=== PATIENT | female | born 1980 | race American Indian/Alaskan Native ===

== ENCOUNTER 2019-02-28 17:14 | Emergency (ER) | payer MEDICARE ==
[2019-02-28] MEDS ORDERED: IPRATROPIUM/ALBUTEROL SULFATE 3 ML AMPUL.NEB IH ONE (18:25)
--- NOTE | 2019-02-28 19:07 | Emergency Department Report ---
HPI - General Chief Complaint: Neuro Symptoms/Deficit Time Seen by Provider: 02/28/19 17:57 - HPI HPI: 38-year-old -[place] female presents to the emergency department via EMS with complaint of some left-sided headache, transient blurry vision, numbness to the face and hands that started around 4:00 when she was driving to order picker her child. She has a past medical history of hypertension, diabetes, anxiety, paroxysmal atrial fibrillation and asthma. She did not take anything for her symptoms prior to presentation. Currently she just complains of the headache which she says is currently 6 out of 10. She says this is not the worst headach e of her life. She also asked for a breathing treatment saying that she feels tight in the lungs. No recent travel or sick contacts at home. Her primary care physician is Dr. Osorio. She denies any tobacco or illicit drug use. ED Past Medical Hx - Past Medical History Previous Medical History?: Yes Hx Hypertension: Yes Hx Diabetes: Yes Hx Asthma: Yes Additional medical history: A-fib, anxiety - Social History Smoking Status: Never Smoker - Medications Home Medications: Home Medications Medication Instructions Recorded Confirmed Last Taken Type ALBUTEROL Inhaler (OR & NICU) 2 puff IH QID PRN #1 inh 03/01/19 Unknown Rx [ProAir HFA Inhaler] ED Review of Systems ROS: Stated complaint: PANIC ATTACK/LETHARGIC Other details as noted in HPI Comment: All other systems reviewed and negative Constitutional: denies: chills, fever Eyes: vision change. denies: eye pain ENT: denies: ear pain, throat pain Respiratory: wheezing. denies: cough Cardiovascular: denies: chest pain, palpitations Gastrointestinal: denies: abdominal pain, vomiting Genitourinary: denies: dysuria, discharge Musculoskeletal: denies: back pain, arthralgia Skin: denies: rash, lesions Neurological: headache, numbness. denies: weakness, confusion Physical Exam - Physical Exam Vital Signs: Vital Signs 02/28/19 17:52 Temperature 98.5 F Pulse Rate 86 Respiratory 13 Rate Blood Pressure 122/66 [Right] O2 Sat by Pulse 98 Oximetry Physical Exam: GENERAL: The patient is well-developed well-nourished. HENT: Normocephalic. Atraumatic. Patient has moist mucous membranes. EYES: Extraocular motions are intact. Pupils equal reactive to light bilaterally. No nystagmus. NECK: Supple. Trachea is midline. CHEST/LUNGS: Mild expiratory wheezing. No tachypnea or accessory muscle use. There is no respiratory distress noted. HEART/CARDIOVASCULAR: Regular. There is no tachycardia. There is no murmur. ABDOMEN: Abdomen is soft, nontender. Patient has normal bowel sounds. There is no abdominal distention. SKIN: Skin is warm and dry. NEURO: The patient is sleepy but is easily arousable. Once awake she is alert and oriented, AAO 3. The patient is cooperative. The patient has no focal neurologic deficits. Normal speech. Cranial nerves II through XII grossly intact. No pronator drift. No dysmetria. MUSCULOSKELETAL: There is no tenderness or deformity. There is no limitation range of motion. There is no evidence of acute injury. ED Course Vital Signs 02/28/19 17:52 Temperature 98.5 F Pulse Rate 86 Respiratory 13 Rate Blood Pressure 122/66 [Right] O2 Sat by Pulse 98 Oximetry - ABG Interpretation Ph: 7.432 PCO2: 39 PO2: 98 Bicarbonate: 25 Interpretation: normal ED Medical Decision Making - Lab Data Result diagrams: 02/28/19 19:19 02/28/19 19:19 - EKG Data -: EKG Interpreted by Mo EKG shows normal: sinus rhythm, axis, intervals, QRS complexes (LAFB), ST-T waves Rate: normal - EKG Data When compared to previous EKG there are: previous EKG unavailable Interpretation: other (Left Anterior Fasicular Block. No STEMI) - Radiology Data Radiology results: report reviewed CT of the head does not show any acute intracranial process including no ischemia, shift, mass, bleeding or skull fracture. - Medical Decision Making This patient presented with the complaint of a headache, some transient blurry vision and some nonspecific dizziness. Also while here the patient says she she needs a breathing treatment. There is only some mild expiratory wheezing but no signs of any respiratory distress. On examination she does not have any focal, motor or sensory deficits in her cranial nerves are intact. A CT scan of the head without contrast was done that does not show any bleed, shift, mass, ischemia, or any other acute process. Labs have been unremarkable including CBC, metabolic panel, urinalysis and ESR. Patient was given some breathing treatments. Prior to discharge the patient was ambulatory around the emergency department without any dizziness, increased work of breathing and she both appeared and felt stable. Vital signs stable throughout her ED course. The patient appears safe for discharge home. She has good follow-up with primary care. She was given a prescription for an albuterol inhaler. She will return to the ER with any worsening of her symptoms or any acute distress. - Differential Diagnosis TIA, temporal arteritis, asthma, dysrhythmia Critical Care Time: No Critical care attestation.: If time is entered above; I have spent that time in minutes in the direct care of this critically ill patient, excluding procedure time. ED Disposition Clinical Impression: Bronchospasm Headache Qualifiers: Headache type: unspecified Headache chronicity pattern: unspecified pattern Intractability: not intractable Qualified Code(s): R51 - Headache Disposition: DC- TO HOME OR SELFCARE Is pt being admited?: No Condition: Stable Instructions: Acute Headache (ED), Blurred Vision (ED), Bronchospasm (ED) Additional Instructions: Please follow-up with your primary care physician in the next few days. Return to the emergency Department with any return or worsening of your symptoms, or with any acute distress. Prescriptions: ALBUTEROL Inhaler (OR & NICU) [ProAir HFA Inhaler] 2 puff IH QID PRN #1 inh PRN Reason: Shortness Of Breath Referrals: PRIMARY CAREMD [Primary Care Provider] - 2-3 Days Time of Disposition: 00:41
[2019-02-28 19:33] LABS: Basophils # (Auto) 0.1 K/mm3 (0.0-0.1); Basophils % (Auto) 1.1 % (0.0-1.8); Eosinophils # (Auto) 0.3 K/mm3 (0.0-0.4); Eosinophils % (Auto) 3.7 % (0.0-4.3); Hemoglobin 11.9 gm/dl (10.1-14.3); Lymphocytes % (Auto) 25.1 % (13.4-35.0); Mean Corpuscular HGB Conc 32 % (30-34); Mean Corpuscular Volume 80 fl (79-97); Monocytes # (Auto) 0.5 K/mm3 (0.0-0.8); Platelet Count 248 K/mm3 (140-440); Red Blood Count 4.62 M/mm3 (3.65-5.03); Red Cell Distribution Width 15.7 % (13.2-15.2)
[2019-02-28 19:43] LABS: BUN/Creatinine Ratio 13; Blood Urea Nitrogen 8 mg/dL (7-17); Calcium 8.7 mg/dL (8.4-10.2); Hemolysis Index 3
[2019-02-28 19:53] LABS: Erythrocyte Sedimentation Rate 17 mm/Hr (0-20)
[2019-02-28 20:09] LABS: Bilirubin,Urine NEG (Negative); Blood,Urine NEG (Negative); Color,Urine Yellow (Yellow); Mucus,Urine FEW /HPF; Protein,Urine <15 mg/dL mg/dL (Negative); Urobilinogen,Urine < 2.0 mg/dL (<2.0)
--- NOTE | 2019-02-28 21:57 | Cat Scan Report ---
CT head/brain wo con INDICATION / CLINICAL INFORMATION: 38 years Female; headache. TECHNIQUE: Routine CT head without contrast. All CT scans at this location are performed using CT dos e reduction for ALARA by means of automated exposure control. COMPARISON: None. FINDINGS: BRAIN / INTRACRANIAL CONTENTS: No acute hemorrhage, mass effect, midline shift, hydrocephalus, or acu te, large territorial infarct. No chronic infarct or atrophy appreciated. No significant white matter abnormality. CRANIOCERVICAL JUNCTION: No significant abnormality. ORBITS: No significant abnormality of visualized orbits. SINUSES / MASTOIDS: Mucous retention cyst/polyp seen in the maxillary antra. Prior sinus surgery may been performed. Mild to moderate mucosal thickening also seen in the left sphenoid sinus. ADDITIONAL FINDINGS: None. IMPRESSION: 1. No focal mass, hemorrhage, hydrocephalus, or acute, large territorial infarct. Signer Name: Lexa Jerome MD, III Signed: 02/28/2019 9:53 PM Workstation Name: [id number]
[2019-02-28] MEDS ORDERED: ALBUTEROL 2.5 MG/3 ML NEBU IH ONE (22:36)
[2019-03-01 00:20] LABS: ABG Base Excess 1.2 mmol/L (-2.0-3.0); ABG HCO3 25.4 mmol/L (20.0-26.0); ABG Methemoglobin 0.5 % (0.0-1.5); ABG Oxygen Saturation 97.6 % (95.0-99.0); ABG PH 7.432 pH Units (7.350-7.450); ABG PO2 98.5 mm Hg (80.0-90.0)
[2019-03-01 01:17] VITALS: BP 110/55
== END 2019-03-01 01:17 | disposition home or self-care (01) ==
LOC: ED 17:14
DX: J98.01 Acute bronchospasm (principal); R51 Headache; I10 Essential (primary) hypertension; E11.9 Type 2 diabetes mellitus without complications; I48.91 Unspecified atrial fibrillation; F41.9 Anxiety disorder, unspecified; Z79.899 Other long term (current) drug therapy; Z88.8 Allergy status to other drugs, medicaments and biological substances
CPT/HCPCS: 36415; 70450; 80048; 81001; 82803; 84443; 84703; 85025; 85652; 93005; 93010; 94640; 94644